=== PATIENT | female | born 1995 | race Caucasian/White ===

== ENCOUNTER → 2022-12-30 | Day surgery (SDC) | payer OTHER | END | disposition home or self-care (01) | LOC: JMAMMO-SUR 11:47 | PROVIDERS: ATTEND Registered Nurse | PROC: 0H9T3ZX Drainage of Right Breast, Percutaneous Approach, Diagnostic (ICD-10-PCS; principal; 2022-12-30) | DX: N60.01 Solitary cyst of right breast (principal) | CPT/HCPCS: 19000; 76942-TC; 87899; 88173; 88305-TC ==